=== PATIENT | female | born 1960 | race Caucasian/White ===

== ENCOUNTER → 2016-09-02 | Outpatient (CLI) | payer BC ==
[~2016-09-02] MED LIST: CHOL1CAP85 PO; CHROMIUM PO; LORA-741 PO; MISCCAP80 PO; MULT-506 PO; OMEG12006 PO
== END | disposition home or self-care (01) ==
LOC: C.PAPS 10:23
PROVIDERS: ATTEND Obstetrics & Gynecology
DX: Z01.419 Encounter for gynecological examination (general) (routine) without abnormal findings (principal)

== ENCOUNTER → 2016-11-13 | Outpatient (CLI) | payer BC ==
[~2016-11-13] MED LIST changes: +OPTIRAY 320 IV PRN
--- NOTE | 2016-11-13 08:18 | DIAGNOSTIC IMAGING REPORT ---
CT OF THE CHEST WITH IV CONTRAST CLINICAL HISTORY: Breast carcinoma. Pulmonary nodules. COMPARISON STUDY: 05/23/2016 , 6-16 TECHNIQUE: Following the IV administration of mL of Optiray-320, CT of the thorax was performed from the thoracic inlet to the lung bases. Images are reviewed in the axial, sagittal, and coronal planes. IV contrast was administered without complication. CT DOSE: 219.80 mGy.cm FINDINGS: Thyroid: Imaged portions of the thyroid gland are normal in appearance. Thoracic aorta: The thoracic aorta is normal in course and caliber, noting standard 3-vessel arch anatomy. No aneurysm or dissection is seen. Pulmonary vasculature: The pulmonary trunk is normal in caliber. There are no central filling defects identified to suggest pulmonary embolus. Note that this examination was not protocoled for the evaluation of pulmonary emboli. HEART: There is a stable moderate pericardial effusion Lungs and pleural spaces: There is no focal pulmonary consolidation. There is a stable 5 mm right lower lobe pulmonary nodule. There is a stable 2 mm pulmonary nodule within the left apex. Mediastinum: There is no mediastinal lymphadenopathy. Reba: Clear. Axilla: Clear. Upper abdomen: Partially visualized upper abdominal viscera is within normal limits. Skeletal structures: There are no lytic or blastic osseous lesions. IMPRESSION: 1. Stable (x10 months) 5 mm right lower lobe pulmonary nodule. 2. No evidence of pathologic adenopathy 3. Stable pericardial effusion Electronically signed by: Jeff Pedroza M.D. 11/13/2016 8:17 AM Dictated Date/Time: 11/13/2016 8:12 AM
== END | disposition home or self-care (01) ==
LOC: C.CTS 07:52
PROVIDERS: ATTEND Internal Medicine Hematology & Oncology
DX: R91.1 Solitary pulmonary nodule (principal); Z85.3 Personal history of malignant neoplasm of breast; I31.3 Pericardial effusion (noninflammatory)

== ENCOUNTER → 2016-11-26 | Outpatient (CLI) | payer BC ==
[~2016-11-26] MED LIST changes: -OPTIRAY 320 IV PRN
== END | disposition home or self-care (01) ==
LOC: C.PATHSPEC 10:59
PROVIDERS: ATTEND Obstetrics & Gynecology
DX: N95.0 Postmenopausal bleeding (principal)

== ENCOUNTER → 2016-12-30 | Outpatient (CLI) | payer SELFPAY | LOC: C.LAB 09:04 | PROVIDERS: ATTEND Obstetrics & Gynecology ==

== ENCOUNTER → 2017-05-28 | Outpatient (CLI) | payer BC ==
--- NOTE | 2017-05-29 07:46 | MAMMOGRAPHY REPORT ---
BILATERAL DIGITAL SCREENING MAMMOGRAM TOMOSYNTHESIS WITH CAD: 05/28/2017 CLINICAL HISTORY: Asymptomatic. Personal history of breast cancer. TECHNIQUE: Breast tomosynthesis in addition to standard 2D mammography was performed. Current study was also evaluated with a Computer Aided Detection (CAD) system. COMPARISON: Comparison is made to exams dated: 04/16/2016 mammogram, 04/11/2015 mammogram, 04/04/2014 ult rasound, 03/24/2014 mammogram, 02/24/2013 mammogram, and 02/24/2012 mammogram - [facility] nter. BREAST COMPOSITION: The tissue of both breasts is heterogeneously dense, which may obscure small mas ses. FINDINGS: There is expected architectural distortion and surgical clips in the upper outer posterior right breast, at the site of prior lumpectomy. The remainder of the breast parenchymal pattern is s imilar to prior mammograms. No obvious new mass, unexpected architectural distortion or cluster of m icrocalcifications is seen. IMPRESSION: ACR BI-RADS CATEGORY 1: NEGATIVE There is no mammographic evidence of malignancy. A 1 year screening mammogram is recommended. The pa tient will receive written notification of the results. Approximately 10% of breast cancers are not detected with mammography. A negative mammographic report should not delay biopsy if a clinically suggestive mass is present. Isabel Mishra M.D. ay/:05/28/2017 15:36:32 [employer] Estimator: Yolis JO)(Dora), [facility] letter sent: Normal 1/2 BI-RADS Code: ACR BI-RADS Category 1: Negative
== END | disposition home or self-care (01) ==
LOC: C.MAMM 11:49
PROVIDERS: ATTEND Obstetrics & Gynecology
DX: Z12.31 Encounter for screening mammogram for malignant neoplasm of breast (principal); Z85.3 Personal history of malignant neoplasm of breast

== ENCOUNTER → 2017-10-02 | Outpatient (CLI) | payer OTHER | END | disposition home or self-care (01) | LOC: C.MAMM 08:48 | PROVIDERS: ATTEND Internal Medicine | DX: R29.890 Loss of height (principal); M85.89 Other specified disorders of bone density and structure, multiple sites ==